=== PATIENT | male | born 1940 | race Caucasian/White ===

== ENCOUNTER 2018-11-28 08:44 | Inpatient (IN) | payer OTHER ==
[2018-11-19 10:11] LABS: HEMATOCRIT 44.1 % (42.0-52.0); HEMOGLOBIN 14.8 gm/dL (14.0-18.0); MCH 31.3 pg (26.0-34.0); MCHC 33.6 g/dL (28.0-37.0); MCV 93.1 fL (80.0-100.0); RBC 4.73 mil/uL (4.50-6.00); RDW 13.5 % (10.5-14.5); WBC 6.9 thou/uL (4.0-11.0)
[2018-11-19 10:18] LABS: PROTIME 10.7 Seconds (9.3-11.4)
[2018-11-19 10:19] LABS: ALBUMIN 3.9 g/dL (3.4-5.0); CALCIUM 9.6 mg/dL (8.5-10.1); CREATININE 1.1 mg/dL (0.7-1.3)
[2018-11-19 10:19] LABS: URINE BILIRUBIN NEGATIVE (Negative); URINE BLOOD TRACE (Negative); URINE CLARITY SL CLOUDY; URINE COLOR YELLOW; URINE GLUCOSE-RANDOM* NEGATIVE (Negative); URINE KETONES NEGATIVE (Negative); URINE PROTEIN (DIPSTICK) NEGATIVE (Negative); URINE SPECIFIC GRAVITY <= 1.005 (1.005-1.035); URINE UROBILINOGEN 0.2 E.U./dl (0.2-1.0)
[2018-11-19 10:21] LABS: URINE LEUKOCYTES-REFLEX 1+ (Negative); URINE NITRITE-REFLEX POSITIVE (Negative)
[2018-11-19 10:32] LABS: BACTERIA-REFLEX >30 Many /HPF (None Seen); URINE WBC-REFLEX 6-15 Few /HPF (0-5)
[2018-11-19 10:33] LABS: CASTS None Seen /LPF (None Seen); CRYSTALS None Seen /LPF (None Seen); SQUAMOUS 0-3 Few /LPF (0-3); URINE RBC 3-10 Few /HPF (0-2)
--- NOTE | 2018-11-19 16:28 | EKG ---
[place] [address] [facility] [place] [address] ELECTROCARDIOGRAM REPORT Name: JEM LOPEZ TALIA Room #: PRE IN M.R.#: [id number] Admission: Attend Phys: Chris Romeo MD Discharge: Date of : 36 Report #: [id number] THIS REPORT FOR: //name// 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
[2018-11-20 09:10] LABS: GLYCOHEMOGLOBIN (HGB A1C) 7.2 % (4.8-5.6)
[~2018-11-28] VITALS: Ht 180.3 cm; Wt 138.3 kg
--- NOTE | ~2018-11-28 | O ---
[facility] [place] [address] OPERATIVE REPORT Name: JEM LOPEZ Room #: 461-P ADM IN M.R.#: [id number] Admission: 11/28/18 Attend Phys: Chris Romeo MD Discharge: Date of : 36 Report #: [id number] THIS REPORT FOR: //name// CC: Chris Parra DATE OF SERVICE: 11/28/2018 PREOPERATIVE DIAGNOSES: 1. Right knee osteoarthritis. 2. Morbid obesity with a body mass index of 41. POSTOPERATIVE DIAGNOSES: 1. Right knee osteoarthritis. 2. Morbid obesity with a body mass index of 41. PROCEDURE: Right total knee arthroplasty using Navio robotic preschool assistant. SURGEON: Chris Romeo MD PRODUCT SPECIALIST: Maribel Brock PA-C. INDICATIONS FOR PRODUCT SPECIALIST: Throughout the case, extensive retraction and manipulation of the knee was required. This was afforded to me by my preschool assistant. ANESTHESIA: LMA with an adductor canal block. IMPLANTS: [employer]oz [employer]hew size 5 Legion cobalt chrome posterior stabilized femur, size 6 tibia, size 9 polyethylene and size 38 patella. TOURNIQUET TIME: 63 minutes. ESTIMATED BLOOD LOSS: 25 mL. COMPLICATIONS: None. SPECIMENS: None. CONDITION UPON LEAVING THE OPERATING ROOM: Stable. INDICATIONS FOR PROCEDURE: The patient is an 78-year-old male with severe right knee osteoarthritis. He had failed conservative measures for this and after discussion with him, he elected for right total knee arthroplasty. DESCRIPTION OF PROCEDURE: Risks, benefits, alternatives, complications were discussed in detail with the patient including but not limited to risk of [facility] [address] [place] [address] OPERATIVE REPORT Name: JEM LOPEZ Room #: 461-P ADM IN M.R.#: [id number] Admission: 11/28/18 Attend Phys: Chris Romeo MD Discharge: Date of : 36 Report #: [id number] anesthesia, risk of damage to nerves, arteries, blood vessels, risk for infection, bleeding, risk for continued knee pain, need for reoperation. Informed consent was obtained from the patient. Right knee was appropriately marked in the preoperative holding area. IV Ancef was given for preoperative antibiotics. Adductor canal block was placed by anesthesia. He was brought to the operating room and placed in supine position on operating room table. LMA anesthesia was induced without complication. Tourniquet was placed on the right thigh. Right lower extremity was prepped and draped in normal sterile fashion. Timeout was performed properly identifying the patient and procedure as well as instrumentation. All in the operating room were in agreement. Right lower extremity was exsanguinated, tourniquet was inflated. Tourniquet time was 63 minutes. Standard midline approach to knee was made with 10 blade through the skin. Dissection was taken down sharply to the fascia and deep flaps were developed medially and laterally. Fresh 10 blade was used to make a medial parapatellar arthrotomy and the knee was inspected. There was severe tricompartment osteoarthritis. ACL and PCL were removed sharply. Osteophytes were removed from the femur. Reference pins were placed in the femur and the tibia and the knee was digitally mapped using the Navio robotic preschool assistant. Intraoperative plan was made and we sized the size 7 femur with a size 6 tibia and a size 11 polyethylene. After acceptance of the intraoperative plan, the distal femoral cut was made with a Navio bur. The size 7 four-in-one cutting block was placed. Anterior, posterior and chamfer cuts were made. Attention was then turned to the tibia. The tibia subluxed anteriorly and the remainder of the menisci were removed with Bovie cautery. Tibial resection guide was pinned in place using the Navio for placement of the guide and the tibial resection was made. Flexion and extension gaps were then checked and found to be tight medially in extension. Medial osteophytes were removed from the tibia and this balanced the knee well. Tibia was sized, found to be a size 6. The size 6 tibial trial was placed. A size 7 femoral trial was placed and the box cut was made. This was then trialed with a size 9 polyethylene. Knee was taken through range of motion, found to have a millimeter of laxity medially and 2-3 mm of laxity laterally throughout range of motion of the knee. It was felt that this was acceptable. A 9 mm was taken off the posterior surface of the patella and a size 38 patellar trial button was placed. Knee was taken through range of motion, found to be stable, found to have good patellar tracking. After this, trial components were removed. Bony ends were thoroughly irrigated with normal saline. A final size 6 tibia, size 7 Legion cobalt chrome posterior stabilized femur and a size 38 patella were cemented in place using standard cementation techniques. While the cement cured, a periarticular injection consisting of morphine, ropivacaine, epinephrine and Toradol was placed in the hip joint capsule. After the cement cured, the tourniquet was deflated. Hemostasis was obtained with Bovie cautery. Final size 9 polyethylene was placed. A gram of vancomycin was placed deep in the joint. The fascia was closed with 0 Vicryl, skin was closed with 2-0 Vicryl, 3-0 Monocryl. Dermabond and a RAYMON dressing [address] [address] OPERATIVE REPORT Name: JEM LOPEZ Room #: 461-P [facility] IN M.R.#: [id number] Admission: 11/28/18 Attend Phys: Chris Romeo MD Discharge: Date of : 36 Report #: [id number] was applied. The patient tolerated this procedure well and went to recovery room under care of anesthesia postoperatively. By: 1432 [id number] Chris Romeo MD /nt
[~2018-11-28 08:44] MED LIST: ASPIR 8181 MG PO; BACTRIM DS TAB1 EACH PO; CALCIUM-MAGNES1 EACH PO; COLLAGEN PO; CRANBERRY300 MG PO; DULOXETINE HCL30 MG PO; FISH OIL 1,001000 M2 PO; FLAX SEED OIL1000 MG PO; GAS-X180 MG PO; LANTUS SUBQ; LASIX 40 MG TAB40 M2 PO; MAGOX 400400 MG PO; MULTIVITAMINS1 EAC7 PO; NEURONTIN600 MG PO; PROTONIX 20 MG20 M1 PO; SODIUM BICARBO650 M3 PO; SUPER B-50 COM1 EACH PO; TENORMIN25 MG PO; TRIPLE FLEX CA1 EACH PO; VITAMIN B-121000 MCG PO; VITAMIN C500 M1 PO; VITAMIN D-32000 UNIT PO; ZOCOR 20 MG TAB20 M1 PO
[2018-11-28 11:50] VITALS: BP 155/71
[2018-11-28 16:45] VITALS: BP 162/83
[2018-11-28 17:52] VITALS: BP 155/70
[2018-11-28 19:07] VITALS: BP 136/57
--- NOTE | 2018-11-28 19:14 | NUR ---
ASSUMED CARE OF PT APPROX 1630. PT A&OX4, VSS, PAIN IN RIGHT KNEE. RAYMON DRESSING C/D/I. PAIN MEDICATION GIVEN, ICE PACK APPLIED. PATIENT HAS ATTILA MENDIOLA AND SCD'S BALDEV NASH. FAMILY AT BEDSIDE. PT TOLERATING DIET. NO SIGNS OF DISTRESS, WILL CONTINUE TO MONITOR.
--- NOTE | 2018-11-29 04:32 | NUR ---
PROGRESS PT A/O X4 LUNGS CLEAR, ABDOMEN SOFT ROUND WITH ACTIVE BS, PT STRAIGHT CATHS AT HOME Q4HRS HAS PERSONAL SUPPLIES AT BEDSIDE CATHED X 2 WITH RETURN OF 1200 ML'S CLEAR YELLOW URINE. NEURO CHECKS TO RIGHT KNEE AND FOOT WNL, SENSATION INTACT, BRISK CAP REFILL, ABLE TO PEDAL AND DORSIFLEX WITHOUT DIFFICULTY, HOMANS SIGN NEGATIVE. PAIN CONTROLLED WITH OXYCODONE LONG ACTING AND SHORT ACTING GIVEN X 2. IVF'S INFUSING INTO LH WITHOUT DIFFICULTY, POST OP ANTIBIOTICS GIVEN ORDERED. PT NOT OOB YET BUT ABLE TO REPOSITION SELF NEEDED. ACCUCHECKS AND SSI CONTINUE, PT DRINKING AND TOLERATING REG DIET. PLAN TO WORK WITH PT/OT AND POSSIBLE DC HOME LATER IN DAY.
[2018-11-29 05:52] LABS: HEMATOCRIT 37.6 % (42.0-52.0); HEMOGLOBIN 12.2 gm/dL (14.0-18.0); MCH 31.1 pg (26.0-34.0); MCHC 32.4 g/dL (28.0-37.0); RBC 3.91 mil/uL (4.50-6.00); RDW 13.8 % (10.5-14.5)
[2018-11-29 07:30] VITALS: BP 158/76
[2018-11-29 08:00] VITALS: BP 158/76
[2018-11-29] MEDS ORDERED: ASPIR 8181 MG PO (11:29)
--- NOTE | 2018-11-29 15:13 | NUR ---
PT ADMITTED RELATED TO RT TOTAL KNEE REPLACEMENT. CM REVIEWED CHART AND SPOKE WITH CARE TEAM. CM MET WITH PT AT BEDSIDE THIS DAY. PT INDICATED HE LIVES IN A HOUSE WITH HIS SIG OTHER AND SON WITH 9 STEPS TO ENTER AND 7 STEPS INSIDE. PT NEEDS A FWW ISSUED PTD. ONCE WAS ISSUED BY PROVIDER [employer]. PT IS ESTABLISHED WITH OP PT AT [facility] IN [place]. PT ANTICIAPTES DISCHARGING HOME THIS DAY. NO OTHER CM INTERVENTION INDICATED. CASE CLOSED.
[2018-11-29 15:45] VITALS: BP 158/76
--- NOTE | 2018-11-29 17:05 | NUR ---
PT STABLE THROUGHOUT SHIFT. WORKED WELL WITH PT. PT DISCHARGED HOME. GIVEN DC INSTRUCTIONS AND RX'S. PT LEFT UNIT VIA WHEELCHAIR TO PRIVATE VEHICLE.
== END 2018-11-29 17:35 | disposition home or self-care (01) | DRG 470 ==
LOC: PRE → 4W 10:18 → TBA 10:18 → PRE 15:46 → 4W 16:44 → ENTRNSPT 11-29 16:33 → 4W 11-29 17:35
PROVIDERS: ADMIT Orthopaedic Surgery
PROC: 8E0Y0CZ Robotic Assisted Procedure of Lower Extremity, Open Approach (ICD-10-PCS; principal; 2018-11-28)
PROC: 0SRC0J9 Replacement of Right Knee Joint with Synthetic Substitute, Cemented, Open Approach (ICD-10-PCS; principal; 2018-11-28)
DX: M17.11 Unilateral primary osteoarthritis, right knee (principal); Z68.41 Body mass index [BMI] 40.0-44.9, adult; E66.01 Morbid (severe) obesity due to excess calories; E11.9 Type 2 diabetes mellitus without complications; I10 Essential (primary) hypertension; G47.33 Obstructive sleep apnea (adult) (pediatric); E78.5 Hyperlipidemia, unspecified; G89.29 Other chronic pain; M10.9 Gout, unspecified; Z96.652 Presence of left artificial knee joint; Z80.9 Family history of malignant neoplasm, unspecified; Z87.891 Personal history of nicotine dependence; Z88.6 Allergy status to analgesic agent; Z79.82 Long term (current) use of aspirin; Z79.899 Other long term (current) drug therapy; Z85.51 Personal history of malignant neoplasm of bladder; Z85.46 Personal history of malignant neoplasm of prostate; Z90.49 Acquired absence of other specified parts of digestive tract; Z82.49 Family history of ischemic heart disease and other diseases of the circulatory system
CPT/HCPCS: 10047; 50010; 50101; 50415; 50954; 51130; 51225; 53000; 53078; 53364; 54118; 56528; 57095; 57103; 57110; 57127; 57180; 62110; 62900; 64039; 64043; 70005